=== PATIENT | male | born 2000 | race Caucasian/White ===

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

== ENCOUNTER 2021-04-04 12:33 | Emergency (ER) | payer OTHER ==
[~2021-04-04] VITALS: Ht 180.3 cm; Wt 57.0 kg
[2021-04-04] MEDS ORDERED: IBUPROFEN 600 MG TABLET PO ONE (13:45)
[2021-04-04 13:59] VITALS: BP 112/62
== END 2021-04-04 13:59 | disposition home or self-care (01) ==
LOC: EMS 12:33
DX: S13.4XXA Sprain of ligaments of cervical spine, initial encounter (principal); V49.49XA Driver injured in collision with other motor vehicles in traffic accident, initial encounter; Y93.89 Activity, other specified; Y92.89 Other specified places as the place of occurrence of the external cause; Y99.8 Other external cause status
CPT/HCPCS: 99283